=== PATIENT | male | born 1970 | race Caucasian/White ===

== ENCOUNTER 2021-01-21 19:33 | Inpatient (IN) | payer MEDICARE, OTHER ==
[~2021-01-21] VITALS: Ht 175.3 cm; Wt 111.1 kg
[2021-01-21 21:01] LABS: HEMOGLOBIN 13.3 gm/dl (14.0-17.5); RED BLOOD COUNT 4.49 M/UL (4.20-5.50); WHITE BLOOD COUNT 4.1 K/UL (4.5-11.0)
[2021-01-21 21:24] LABS: BUN/CREATININE RATIO 17 (0-10)
[2021-01-22 06:41] LABS: BUN/CREATININE RATIO 21 (0-10)
[2021-01-22] MEDS ORDERED: ZOFRAN ODT 4 MG4 MG PO (15:05)
[2021-01-22] MEDS ORDERED: LIPITOR10 MG PO (15:06)
[2021-01-22] MEDS ORDERED: METFORMIN HCL1000 MG PO (15:08)
[2021-01-22] MEDS ORDERED: TRULANCE3 MG PO (15:09)
[2021-01-22] MEDS ORDERED: ALBUTEROL2.5 MG/3 M INH (15:10)
[2021-01-22] MEDS ORDERED: IBU600 MG PO (15:11)
[2021-01-23 03:44] LABS: HEMOGLOBIN 14.8 gm/dl (14.0-17.5); RED BLOOD COUNT 4.8 M/UL (4.20-5.50)
[2021-01-23 03:47] LABS: WHITE BLOOD COUNT 6.1 K/UL (4.5-11.0)
[2021-01-23 04:10] LABS: BUN/CREATININE RATIO 28 (0-10)
[2021-01-24 06:56] LABS: HEMOGLOBIN 14.3 gm/dl (14.0-17.5); RED BLOOD COUNT 4.64 M/UL (4.20-5.50)
[2021-01-24 06:58] LABS: WHITE BLOOD COUNT 7.7 K/UL (4.5-11.0)
[2021-01-24 07:21] LABS: BUN/CREATININE RATIO 31 (0-10)
[2021-01-25 04:36] LABS: HEMOGLOBIN 14.1 gm/dl (14.0-17.5); RED BLOOD COUNT 4.62 M/UL (4.20-5.50)
[2021-01-25 04:52] LABS: WHITE BLOOD COUNT 9.8 K/UL (4.5-11.0)
[2021-01-25 05:25] LABS: BUN/CREATININE RATIO 39 (0-10)
[2021-01-26 08:50] LABS: HEMOGLOBIN 15.1 gm/dl (14.0-17.5); RED BLOOD COUNT 4.86 M/UL (4.20-5.50); WHITE BLOOD COUNT 9.5 K/UL (4.5-11.0)
[2021-01-26 09:35] LABS: BUN/CREATININE RATIO 30 (0-10)
[2021-01-26] MEDS ORDERED: DECADRON6 MG PO (09:36)
[2021-01-26] MEDS ORDERED: COMBIVENT RESPIM4 GM INH (09:36)
[2021-01-26] MEDS ORDERED: ASPIRIN EC81 MG PO (09:36)
[2021-02-04] MEDS ORDERED: LINZESS145 MCG PO (15:07)
[2021-02-04] MEDS ORDERED: NEURONTIN300 MG PO (15:09)
[2021-02-04] MEDS ORDERED: NOVOLOG 10100 UNITS1 SC (15:10)
[2021-02-04] MEDS ORDERED: LANTUS SOL100 UNIT/1 SC (16:27)
[2021-02-04] MEDS ORDERED: COMBIVENT RESPIM4 GM INH (16:29)
[2021-02-04] MEDS ORDERED: TYLENOL325 MG PO (16:31)
[2021-02-04] MEDS ORDERED: BUPRENORPHIN-N1 EACH SL (16:33)
== END 2021-01-26 13:07 | disposition home or self-care (01) | DRG 177 ==
LOC: ER1 19:33 → EDBD 19:33 → MED SURG 4 23:24 → CDU 23:24 → MED SURG 4 23:24
PROVIDERS: Internal Medicine; Internal Medicine Infectious Disease; Student in an Organized Health Care Education/Training Program; ADMIT Internal Medicine
PROC: XW033E5 Introduction of Remdesivir Anti-infective into Peripheral Vein, Percutaneous Approach, New Technology Group 5 (ICD-10-PCS; principal; 2021-01-21)
PROC: 3E0333Z Introduction of Anti-inflammatory into Peripheral Vein, Percutaneous Approach (ICD-10-PCS; 2021-01-21)
PROC: 8E0ZXY6 Isolation (ICD-10-PCS; 2021-01-21)
PROC: XW13325 Transfusion of Convalescent Plasma (Nonautologous) into Peripheral Vein, Percutaneous Approach, New Technology Group 5 (ICD-10-PCS; 2021-01-22)
PROC: B24BZZ4 Ultrasonography of Heart with Aorta, Transesophageal (ICD-10-PCS; 2021-01-22)
DX: U07.1 COVID-19 (principal); J96.01 Acute respiratory failure with hypoxia; J12.82 Pneumonia due to coronavirus disease 2019; D61.818 Other pancytopenia; I47.1 Supraventricular tachycardia; E87.1 Hypo-osmolality and hyponatremia; E87.6 Hypokalemia; E11.65 Type 2 diabetes mellitus with hyperglycemia; T38.0X5A Adverse effect of glucocorticoids and synthetic analogues, initial encounter; E86.0 Dehydration; Z79.4 Long term (current) use of insulin; Z82.49 Family history of ischemic heart disease and other diseases of the circulatory system; Z79.82 Long term (current) use of aspirin
CPT/HCPCS: ECHO; 36415; 36600; 71045; 80048; 80053; 82550; 82553; 82803; 82962; 83690; 83735; 83874; 83880; 84100; 84439; 84443; 84484; 85025; 85027; 85379; 86140; 86900; 86901; 86927; 93005; 93306; 96374; 99285; J0360; J0456; J0696; J1100; J1650; J3480; J7030; J7050; Q9967; U0002

== ENCOUNTER → 2021-02-04 | Emergency (ER) | payer MEDICARE, OTHER ==
[~2021-02-04] VITALS: Ht 175.3 cm; Wt 111.1 kg
[~2021-02-04] MED LIST: ALBUTEROL2.5 MG/3 M INH; ASPIRIN EC81 MG PO; BUPRENORPHIN-N1 EACH SL; COMBIVENT RESPIM4 GM INH; DECADRON6 MG PO; IBU600 MG PO; LANTUS SOL100 UNIT/1 SC; LINZESS145 MCG PO; LIPITOR10 MG PO; METFORMIN HCL1000 MG PO; NEURONTIN300 MG PO; NOVOLOG 10100 UNITS1 SC; TRULANCE3 MG PO; TYLENOL325 MG PO; ZOFRAN ODT 4 MG4 MG PO
[2021-02-04 09:34] LABS: HEMOGLOBIN 15.1 gm/dl (14.0-17.5); RED BLOOD COUNT 4.78 M/UL (4.20-5.50); WHITE BLOOD COUNT 8.2 K/UL (4.5-11.0)
[2021-02-04 10:03] LABS: BUN/CREATININE RATIO 40 (0-10)
[2021-02-04 13:57] LABS: BUN/CREATININE RATIO 36 (0-10)
[2021-02-05 06:09] LABS: HEMOGLOBIN 13.7 gm/dl (14.0-17.5); RED BLOOD COUNT 4.38 M/UL (4.20-5.50)
[2021-02-05 06:14] LABS: WHITE BLOOD COUNT 11.3 K/UL (4.5-11.0)
[2021-02-05 06:30] LABS: BUN/CREATININE RATIO 34 (0-10)
== END | disposition home or self-care (01) ==
LOC: ER1 08:44 → CDU 02-05 04:44 → ER1 02-05 04:44 → CDU 02-05 14:21
PROVIDERS: Emergency Medicine; Internal Medicine
DX: U07.1 COVID-19 (principal); J12.82 Pneumonia due to coronavirus disease 2019; E87.5 Hyperkalemia; R79.89 Other specified abnormal findings of blood chemistry; E11.65 Type 2 diabetes mellitus with hyperglycemia
CPT/HCPCS: 36600; 71045; 80048; 80053; 81001; 82009; 82550; 82553; 82803; 82962; 83036; 83605; 83690; 83735; 83874; 83880; 84484; 85025; 85027; 85379; 87040; 93005; 94640; 94664; 94760; 96374; 96375; 96376; 99285; G0378; J0456; J0696; J1650; J7030; Q9967; U0002